=== PATIENT | male | born 1935 | race Native Hawaiian/Other Pacific Islander ===

== ENCOUNTER 2016-09-26 08:42 | Outpatient (CLI) | payer OTHER, MEDICARE | END 2016-09-26 19:06 | disposition home or self-care (01) | LOC: US 08:42 | DX: I73.9 Peripheral vascular disease, unspecified (principal) ==

== ENCOUNTER 2019-02-04 09:50 | Outpatient (CLI) | payer OTHER, MEDICARE | END 2019-02-04 23:49 | disposition home or self-care (01) | LOC: CT 09:50 | DX: R10.32 Left lower quadrant pain (principal); R19.7 Diarrhea, unspecified; Z87.19 Personal history of other diseases of the digestive system | CPT/HCPCS: 36415; 82565; 84520; Q9963 ==

== ENCOUNTER 2019-03-31 07:39 | Day surgery (SDC) | payer OTHER, MEDICARE ==
[2019-03-31 08:48] LABS: PLATELET COUNT 206 K/uL (142-355)
[2019-03-31 08:53] LABS: POTASSIUM 3.9 mmol/L (3.6-5.2)
[2019-03-31 09:02] LABS: PARTIAL THROMBOPLASTIN TIME 26.7 SECONDS (24.5-33.6)
== END 2019-03-31 11:18 | disposition home or self-care (01) ==
LOC: OR 07:39
PROVIDERS: Student in an Organized Health Care Education/Training Program
PROC: 0DJD8ZZ Inspection of Lower Intestinal Tract, Via Natural or Artificial Opening Endoscopic (ICD-10-PCS; principal; 2019-03-31)
DX: K57.30 Diverticulosis of large intestine without perforation or abscess without bleeding (principal); K64.8 Other hemorrhoids
CPT/HCPCS: 80053; 85027; 85610; 85730; J2001; J2250; J2405; J2704

== ENCOUNTER 2020-07-14 06:22 | Outpatient (CLI) | payer OTHER, MEDICARE ==
[2020-07-14 06:39] LABS: PLATELET COUNT 222 K/uL (142-355)
== END 2020-07-14 22:14 | disposition home or self-care (01) ==
LOC: LABW 06:22
PROVIDERS: ATTEND Family Medicine
DX: I10 Essential (primary) hypertension (principal); Z12.5 Encounter for screening for malignant neoplasm of prostate; I25.10 Atherosclerotic heart disease of native coronary artery without angina pectoris; E78.49 Other hyperlipidemia
CPT/HCPCS: 36415; 80053; 80061; 81000; 84153; 85027

== ENCOUNTER 2020-12-25 08:49 | Outpatient (CLI) | payer OTHER, MEDICARE | END 2020-12-25 19:24 | disposition home or self-care (01) | LOC: RAD 08:49 | PROVIDERS: ATTEND Physician Assistant | DX: M54.5 Low back pain (principal) ==

== ENCOUNTER 2021-07-31 07:33 | Outpatient (CLI) | payer OTHER, MEDICARE ==
[2021-07-31 08:33] LABS: PLATELET COUNT 218 K/uL (142-355)
[2021-07-31 09:34] LABS: POTASSIUM 4.3 mmol/L (3.6-5.2)
== END 2021-07-31 19:02 | disposition home or self-care (01) ==
LOC: LABW 07:33
PROVIDERS: ATTEND Family Medicine
DX: Z00.00 Encounter for general adult medical examination without abnormal findings (principal); I10 Essential (primary) hypertension; Z12.5 Encounter for screening for malignant neoplasm of prostate; I25.10 Atherosclerotic heart disease of native coronary artery without angina pectoris; E78.49 Other hyperlipidemia; N40.0 Benign prostatic hyperplasia without lower urinary tract symptoms
CPT/HCPCS: 36415; 80053; 80061; 81000; 84153; 85027

== ENCOUNTER 2023-06-09 09:19 | Outpatient (CLI) | payer OTHER, MEDICARE ==
[2023-06-09 09:41] LABS: PLATELET COUNT 207 K/uL (142-355)
[2023-06-09 09:57] LABS: POTASSIUM 3.8 mmol/L (3.6-5.2)
== END 2023-06-09 19:02 | disposition home or self-care (01) ==
LOC: LABW 09:19
PROVIDERS: ATTEND Family Medicine
DX: I10 Essential (primary) hypertension (principal); E78.49 Other hyperlipidemia; Z12.5 Encounter for screening for malignant neoplasm of prostate; N40.0 Benign prostatic hyperplasia without lower urinary tract symptoms
CPT/HCPCS: 36415; 80053; 80061; 81002; 84153; 85027